=== PATIENT | female | born 1940 ===

== ENCOUNTER 2017-04-05 10:00 | Inpatient (IN) | payer OTHER ==
[~2017-04-05] VITALS: Ht 144.8 cm; Wt 54.4 kg
[2017-04-05] MEDS ORDERED: LOSARTAN-HCTZ1 EAC1 PO (12:01)
[2017-04-05] MEDS ORDERED: ATENOLOL25 MG PO (12:02)
[2017-04-05] MEDS ORDERED: ZOCOR20 MG PO (12:02)
[2017-04-05] MEDS ORDERED: PROTONIX40 M1 PO (12:03)
[2017-04-05] MEDS ORDERED: restoril (12:03)
[2017-04-05] MEDS ORDERED: ZOLOFT25 MG PO (12:03)
[2017-04-05] MEDS ORDERED: vit d (12:04)
== END 2017-04-13 15:15 | disposition home or self-care (01) | DRG 328 ==
LOC: EDUNIT# 10:00 → O/R 04-12 05:45 → SURH 04-12 05:45
PROVIDERS: Surgery
PROC: 0DS64ZZ Reposition Stomach, Percutaneous Endoscopic Approach (ICD-10-PCS; 2017-04-12)
PROC: 0WQF4ZZ Repair Abdominal Wall, Percutaneous Endoscopic Approach (ICD-10-PCS; 2017-04-12)
PROC: 0DJ08ZZ Inspection of Upper Intestinal Tract, Via Natural or Artificial Opening Endoscopic (ICD-10-PCS; 2017-04-12)
PROC: BD11YZZ Fluoroscopy of Esophagus using Other Contrast (ICD-10-PCS; 2017-04-12)
PROC: 0BUT4JZ Supplement Diaphragm with Synthetic Substitute, Percutaneous Endoscopic Approach (ICD-10-PCS; principal; 2017-04-12 11:00)
PROC: 0DV44ZZ Restriction of Esophagogastric Junction, Percutaneous Endoscopic Approach (ICD-10-PCS; 2017-04-12 11:00)
DX: K44.9 Diaphragmatic hernia without obstruction or gangrene (principal); K31.89 Other diseases of stomach and duodenum; R13.19 Other dysphagia; K42.9 Umbilical hernia without obstruction or gangrene; K21.9 Gastro-esophageal reflux disease without esophagitis; I10 Essential (primary) hypertension; E78.00 Pure hypercholesterolemia, unspecified